=== PATIENT | male | born 1960 ===

== ENCOUNTER → 2018-09-14 | Outpatient (REF) ==
[~2018-09-14] MED LIST: FLEXERIL; IBUPROFEN800 MG PO; LORTAB; LORTAB 7.5/5001 TAB PO; METHADONE10 MG PO; MORPHINE SULFAT15 M2 PO; PERCOCET 5/321 UDTAB PO; SKELAXIN400 MG PO; TRAMADOL50 MG PO
== END ==
LOC: ZLAB.WCH 15:54
DX: Z01.89 Encounter for other specified special examinations (principal)